=== PATIENT | male | born 1970 | race Caucasian/White ===

== ENCOUNTER 2016-09-02 20:35 | Emergency (ER) | payer SELFPAY ==
[~2016-09-02] VITALS: Ht 185.4 cm; Wt 99.0 kg
[2016-09-02] MEDS ORDERED: BENZ1TAB PO (20:45)
[2016-09-02] MEDS ORDERED: BUSP10TA PO (20:45)
[2016-09-02] MEDS ORDERED: IBUP800T23 PO (20:45)
[2016-09-02] MEDS ORDERED: BACL10TA PO (20:45)
[2016-09-02] MEDS ORDERED: HYDR-3801 PO (20:45)
[2016-09-02] MEDS ORDERED: NALT50TA3 PO (20:45)
[2016-09-02] MEDS ORDERED: QUET-73 PO (20:45)
[2016-09-02] MEDS ORDERED: CLON0.1T PO (20:45)
[2016-09-02 20:46] VITALS: BP 173/108; PULSE 83; RESP 20; TEMP 98.3; O2SAT 95
[2016-09-02] MEDS ORDERED: SODIUM CHLOR 0.9% 1000 ML INJ 1,000 ML IV ONE (21:00)
--- NOTE | 2016-09-02 21:06 | PD ---
HPI Chief Complaint: General Weakness Time Seen by Provider: 20:46 Travel History International Travel<30 days: No Contact w/Intl Traveler<30days: No Traveled to known affect area: No History of Present Illness HPI The patient is a 45-year-old male who presents emergency department via EMS for multiple complaints. The patient states he recently moved to area from [place] 2 months ago. The patient has a history of bipolar affective disorder and takes Seroquel and clonidine as mood stabilizers. The patient states his walking to the bus earlier today when he felt like he was shaking. The patient feels like he is having racing thoughts, a few shaking, and feels like he is "walking like a robot ". He denies any actual myalgias or arthralgias. He denies any chest pain or shortness of breath. The patient states he is having difficulty expressing his exact symptoms. He denies any suicidal or homicidal ideation. He denies any fever. PFSH Past Medical History Bipolar Disorder: Yes Anxiety: Yes Diminished Hearing: No Immunizations Current: Yes Tetanus Vaccination: Unknown Influenza Vaccination: No Past Surgical History Surgical History: No Previous Surgery Social History Alcohol Use: No Tobacco Use: Yes Substance Use: No Allergies-Medications (Allergen,Severity, Reaction): Coded Allergies: No Known Allergies (Unverified , 09/02/16) Reported Meds & Prescriptions Reported Meds & Active Scripts Active Reported Quetiapine ER (Quetiapine Fumarate) 400 Mg Tab 400 Mg PO DAILY Clonidine (Clonidine HCl) 0.1 Mg Tab 0.1 Mg PO TID Baclofen 10 Mg Tab 10 Mg PO Q8HR PRN Buspirone (Buspirone HCl) 10 Mg Tab 10 Mg PO TID Naltrexone (Naltrexone HCl) 50 Mg Tab 50 Mg PO DAILY Benztropine (Benztropine Mesylate) 1 Mg Tab 1 Mg PO BID Hydralazine (Hydralazine HCl) 100 Mg Tab 100 Mg PO TID Take with meals Ibuprofen 800 Mg Tab 800 Mg PO TID Review of Systems Except as stated in HPI: all other systems reviewed are Neg General / Constitutional: Positive: Other (shaking), No: Fever HENT: No: Lightheadedness Cardiovascular: No: Chest Pain or Discomfort Respiratory: No: Shortness of Breath Gastrointestinal: No: Nausea, Vomiting, Abdominal Pain Genitourinary: No: Dysuria, Incontinence Musculoskeletal: Positive: Pain (back pain) Psychiatric: Positive: Mood Disorder, No: Suicidal Ideations, Substance Abuse , Homicidal Ideation Physical Exam Narrative GENERAL: Awake, alert, 45-year-old male who appears his stated age and is in no acute respiratory distress. SKIN: Warm and dry. Sunburn noted over the face. HEAD: Atraumatic. Normocephalic. EYES: Pupils equal and round. Pupils are 4 mm bilateral and reactive.. ENT: No nasal bleeding or discharge. Mucous membranes pink and moist. NECK: Trachea midline. No JVD. CARDIOVASCULAR: Regular rate and rhythm. No murmur appreciated. Heart rate in the 80s. RESPIRATORY: No accessory muscle use. Clear to auscultation. Breath sounds equal bilaterally. GASTROINTESTINAL: Abdomen soft, non-tender, nondistended. No rebound tenderness. MUSCULOSKELETAL: No obvious deformities. No clubbing. No cyanosis. No edema. NEUROLOGICAL: Awake and alert. No obvious cranial nerve deficits. Motor grossly within normal limits. Normal speech. No rigidity noted. No drooling noted. Alert and oriented 4. PSYCHIATRIC: Odd affect. Data Data Last Documented VS Vital Signs Date Time Temp Pulse Resp B/P Pulse Ox O2 Delivery O2 Flow Rate FiO2 09/02/16 20:46 98.3 83 20 173/108 95 Orders Complete Blood Count With Diff (09/02/16 20:55) Comprehensive Metabolic Panel (09/02/16 20:55) Thyroid Stimulating Hormone (09/02/16 20:55) Urinalysis - C+S If Indicated (09/02/16 20:55) Psych Screen (09/02/16 20:55) Drug Screen, Random Urine (09/02/16 20:55) Alcohol (Ethanol) (09/02/16 20:55) Creatine Kinase (Cpk) (09/02/16 20:55) Sodium Chlor 0.9% 1000 Ml Inj (Ns 1000 M (09/02/16 21:00) CKMB (09/02/16 21:00) CKMB% (09/02/16 21:00) Labs Laboratory Tests Test 09/02/16 21:00 White Blood Count 10.5 TH/MM3 Red Blood Count 4.41 MIL/MM3 Hemoglobin 13.2 GM/DL Hematocrit 37.5 % Mean Corpuscular Volume 85.2 FL Mean Corpuscular Hemoglobin 29.9 PG Mean Corpuscular Hemoglobin 35.1 % Concent Red Cell Distribution Width 15.0 % Platelet Count 351 TH/MM3 Mean Platelet Volume 8.6 FL Neutrophils (%) (Auto) 58.8 % Lymphocytes (%) (Auto) 30.3 % Monocytes (%) (Auto) 8.9 % Eosinophils (%) (Auto) 1.2 % Basophils (%) (Auto) 0.8 % Neutrophils # (Auto) 6.1 TH/MM3 Lymphocytes # (Auto) 3.2 TH/MM3 Monocytes # (Auto) 0.9 TH/MM3 Eosinophils # (Auto) 0.1 TH/MM3 Basophils # (Auto) 0.1 TH/MM3 CBC Comment DIFF FINAL Differential Comment Sodium Level 141 MEQ/L Potassium Level 3.7 MEQ/L Chloride Level 107 MEQ/L Carbon Dioxide Level 25.0 MEQ/L Anion Gap 9 MEQ/L Blood Urea Nitrogen 13 MG/DL Creatinine 1.07 MG/DL Estimat Glomerular Filtration 74 ML/MIN Rate Random Glucose 97 MG/DL Calcium Level 8.4 MG/DL Total Bilirubin 0.3 MG/DL Aspartate Amino Transf 25 U/L (AST/SGOT) Alanine Aminotransferase 28 U/L (ALT/SGPT) Alkaline Phosphatase 71 U/L Total Creatine Kinase 450 U/L Total Protein 7.5 GM/DL Albumin 3.5 GM/DL Thyroid Stimulating Hormone 1.060 uIU/ML 3rd Gen Ethyl Alcohol Level LESS THAN 3 MG/DL MDM Medical Decision Making Medical Screen Exam Complete: Yes Emergency Medical Condition: Yes Medical Record Reviewed: Yes Interpretation(s) Laboratory Tests Test 09/02/16 21:00 White Blood Count 10.5 TH/MM3 Red Blood Count 4.41 MIL/MM3 Hemoglobin 13.2 GM/DL Hematocrit 37.5 % Mean Corpuscular Volume 85.2 FL Mean Corpuscular Hemoglobin 29.9 PG Mean Corpuscular Hemoglobin 35.1 % Concent Red Cell Distribution Width 15.0 % Platelet Count 351 TH/MM3 Mean Platelet Volume 8.6 FL Neutrophils (%) (Auto) 58.8 % Lymphocytes (%) (Auto) 30.3 % Monocytes (%) (Auto) 8.9 % Eosinophils (%) (Auto) 1.2 % Basophils (%) (Auto) 0.8 % Neutrophils # (Auto) 6.1 TH/MM3 Lymphocytes # (Auto) 3.2 TH/MM3 Monocytes # (Auto) 0.9 TH/MM3 Eosinophils # (Auto) 0.1 TH/MM3 Basophils # (Auto) 0.1 TH/MM3 CBC Comment DIFF FINAL Differential Comment Sodium Level 141 MEQ/L Potassium Level 3.7 MEQ/L Chloride Level 107 MEQ/L Carbon Dioxide Level 25.0 MEQ/L Anion Gap 9 MEQ/L Blood Urea Nitrogen 13 MG/DL Creatinine 1.07 MG/DL Estimat Glomerular Filtration 74 ML/MIN Rate Random Glucose 97 MG/DL Calcium Level 8.4 MG/DL Total Bilirubin 0.3 MG/DL Aspartate Amino Transf 25 U/L (AST/SGOT) Alanine Aminotransferase 28 U/L (ALT/SGPT) Alkaline Phosphatase 71 U/L Total Creatine Kinase 450 U/L Total Protein 7.5 GM/DL Albumin 3.5 GM/DL Thyroid Stimulating Hormone 1.060 uIU/ML 3rd Gen Ethyl Alcohol Level LESS THAN 3 MG/DL Differential Diagnosis Differential diagnosis includes neuroleptic malignant syndrome, bipolar affective disorder, rhabdomyolysis, medication side effect, serotonin syndrome, acute renal failure. Narrative Course IV was established, labs are drawn and sent, and the patient was placed on cardiac telemetry monitoring and continuous pulse oximetry monitoring. CPK was sent to lab. Patient does complain of walking like a robot, with muscle rigidity and tremors, he had no obvious muscle rigidity on examination, but does appear to have a slight tremor. Neuroleptic morning syndrome is in the differential as the patient does have a history of taking Seroquel. The patient is afebrile, there is no obvious rigidity on exam, and CKs only 450. I doubt neuroleptic malignant syndrome. Patient was reevaluated several times, I viewed and from a distance, there is no obvious tremor at that time. Patient's blood pressure was reevaluated, was slightly elevated, therefore, was administered his normal dose of clonidine. Psychiatric evaluation is ordered, disposition as per psych. Diagnosis Primary Impression: Bipolar affective disorder Qualified Code: F31.9 - Bipolar affective disorder, remission status unspecified Additional Impression: Hypertension Qualified Code: I10 - Essential hypertension Condition: Stable Josue Cintron MD Sep 02, 2016 21:06
[2016-09-02 21:21] LABS: AUTOMATED NEUTROPHIL # 6.1 TH/MM3 (1.8-7.7); BASOPHIL # 0.1 TH/MM3 (0-0.2); BASOPHIL % 0.8 % (0.0-2.0); EOSINOPHIL # 0.1 TH/MM3 (0-0.4); EOSINOPHIL % 1.2 % (0.0-4.0); HEMATOCRIT 37.5 % (39.0-51.0); HEMO FLAGS DIFF FINAL; LYMPH % 30.3 % (9.0-44.0); LYMPHOCYTE # 3.2 TH/MM3 (1.0-4.8); MEAN CELL VOLUME 85.2 FL (80.0-100.0); MEAN CORPUSCULAR HEMOGLOBIN 29.9 PG (27.0-34.0); MEAN CORPUSCULAR HGB CONC 35.1 % (32.0-36.0); MONO % 8.9 % (0.0-8.0); NEUT % 58.8 % (16.0-70.0); PLATELET COUNT 351 TH/MM3 (150-450); RED BLOOD COUNT 4.41 MIL/MM3 (4.50-5.90); WHITE BLOOD COUNT 10.5 TH/MM3 (4.0-11.0)
[2016-09-02 21:47] LABS: ANION GAP 9 MEQ/L (5-15)
[2016-09-02 21:55] LABS: ALKALINE PHOSPHATASE 71 U/L (45-117); ALT (GPT) 28 U/L (12-78); AST (GOT) 25 U/L (15-37); BLOOD UREA NITROGEN 13 MG/DL (7-18); CHLORIDE 107 MEQ/L (98-107); CREATINE KINASE 450 U/L (39-308); GLOMERULAR FILTRATION RATE 74 ML/MIN (>89); SODIUM (NA) 141 MEQ/L (136-145); TOTAL BILIRUBIN ADULT 0.3 MG/DL (0.2-1.0)
[2016-09-02 21:57] LABS: POTASSIUM 3.7 MEQ/L (3.5-5.1)
[2016-09-02 22:11] VITALS: BP 170/106; PULSE 83; RESP 20; TEMP 97.6; O2SAT 98
[2016-09-02 22:12] LABS: CKMB 2.9 NG/ML (0.5-3.6)
[2016-09-02] MEDS ORDERED: cloNIDine HCL 0.1 MG TAB PO ONE (22:15)
[2016-09-02 22:27] LABS: BLOOD, URINE TRACE (NEG); COMMENT (UR) CULT NOT INDICATED; CULTURE IF INDICATED CULT NOT INDICATED; GLUCOSE,URINE NEG (NEG); KETONE, URINE NEG (NEG); MUCUS URINE FEW /lpf (OCC); NITRITE,URINE NEG (NEG); PH, URINE 6.5 (5.0-8.5); URINE COLOR YELLOW (YELLW/STRAW)
[2016-09-02 22:29] LABS: AMPHETAMINE, URINE NEG (NEG); BARBITURATES, URINE NEG (NEG); COCAINE, URINE NEG (NEG)
[2016-09-02 23:07] VITALS: BP 166/96; PULSE 90; RESP 20; TEMP 97.6; O2SAT 98
[2016-09-03 00:56] VITALS: BP 163/92; PULSE 97; RESP 20; TEMP 98; O2SAT 98
[2016-09-03 02:33] VITALS: BP 145/97; PULSE 89; RESP 20; TEMP 98.2; O2SAT 98
[2016-09-03 05:05] VITALS: BP 117/79; PULSE 90; RESP 20; TEMP 97.8; O2SAT 98
--- NOTE | 2016-09-03 10:23 | PD ---
History of Present Illness Chief Complaint: General Weakness Time Seen by Provider: 10:00 Travel History International Travel<30 Days: No Contact w/Intl Traveler<30days: No Known affected area: No Legal Status Legal Status: Voluntary History of Present Illness: History of Present Illness HPI The patient is a 45-year-old male with history of bipolar disorder , substance use disorder who presents emergency department via EMS on a voluntary status for multiple complaints. As per ed documentation" The patient has a history of bipolar affective disorder and takes Seroquel and clonidine as mood stabilizers. The patient states his walking to the bus earlier today when he felt like he was shaking. The patient feels like he is having racing thoughts, a few shaking, and feels like he is "walking like a robot ". Patient seen in main ED. Awake, alert and oriented. Engaging and cooperative. Speech is clear, logical and coherent. His thoughts are organized with no hallucinations, no delusions and no paranoia. Dressed casually in shorts and a tshirt. . Speech is clear, logical and goal directed. Not pressured Affect is blunted . States " I had some sort of nervous breakdown. I had a stressful event. I live in a [facility] and I dropped one of my medication on the bunk of my roommate and the staff were saying I did it on purpose". I think it is physiological. Denies any suicidal or homicidal ideation, intent or plan. He goes on to report that he is having trouble staying still and feels stiff. He does in fact appear stiff with positive cogwheeling in upper extremities. I verified his medication and he indicates that he he has been taking 30 mg po of Haldol at x 2 months. PFSH Past Medical History Bipolar Disorder: Yes Anxiety: Yes Diminished Hearing: No Immunizations Current: Yes Tetanus Vaccination: Unknown Influenza Vaccination: No Past Surgical History Surgical History: No Previous Surgery Psychiatric History Psychiatric History Hx Psychiatric Treatment: HX OF ANXIETY AND BIPOLAR D/O Currently not being followed by psychiatrist. History of Inpatient Treatment: Yes (multiple ) Guns or firearms in home: No Social History Born in [place]. Currently at the [facility] x 2 weeks. Reports has been clean x 1 and 1/2 year from oxycodone. Hx Alcohol Use: No Hx Tobacco Use: Yes Hx Substance Use: Yes Substance Use Type: Alcohol, Marijuana, Ecstasy, Prescription Medications, Benzos (Valium,Xanax), Cocaine, Synth Opiates-Pain Pills Hx of Substance Use Treatment: Yes Family Psychiatric History None reported Allergies-Medications (Allergen,Severity, Reaction): Coded Allergies: No Known Allergies (Unverified , 09/02/16) Reported Meds & Prescriptions Reported Meds & Active Scripts Active Reported Quetiapine ER (Quetiapine Fumarate) 400 Mg Tab 400 Mg PO DAILY Clonidine (Clonidine HCl) 0.1 Mg Tab 0.1 Mg PO TID Baclofen 10 Mg Tab 10 Mg PO Q8HR PRN Buspirone (Buspirone HCl) 10 Mg Tab 10 Mg PO TID Naltrexone (Naltrexone HCl) 50 Mg Tab 50 Mg PO DAILY Benztropine (Benztropine Mesylate) 1 Mg Tab 1 Mg PO BID Hydralazine (Hydralazine HCl) 100 Mg Tab 100 Mg PO TID Take with meals Ibuprofen 800 Mg Tab 800 Mg PO TID Review of Systems Constitutional: DENIES: Diaphoretic episodes, Fatigue, Fever, Weight gain, Weight loss, Chills, Dizziness, Change in appetite, Night Sweats Endocrine: DENIES: Heat/cold intolerance, Polydipsia, Polyuria, Polyphagia Eyes: DENIES: Blurred vision, Diplopia, Eye inflammation, Eye pain, Vision loss , Photosensitivity, Double Vision Ears, nose, mouth, throat: DENIES: Tinnitus, Hearing loss, Vertigo, Nasal discharge, Oral lesions, Throat pain, Hoarseness, Ear Pain, Running Nose, Epistaxis, Sinus Pain, Toothache, Odynophagia Respiratory: DENIES: Apneas, Cough, Snoring, Wheezing, Hemoptysis, Sputum production, Shortness of breath Cardiovascular: DENIES: Chest pain, Palpitations, Syncope, Dyspnea on Exertion , PND, Lower Extremity Edema, Orthopnea, Claudication Gastrointestinal: DENIES: Abdominal pain, Black stools, Bloody stools, Constipation, Diarrhea, Nausea, Vomiting, Difficulty Swallowing, Anorexia Genitourinary: DENIES: Sexual dysfunction, Urinary frequency, Urinary incontinence, Urgency, Hematuria, Dysuria, Nocturia, Penile Discharge, Testicular Pain, Testicular Swelling Musculoskeletal: COMPLAINS OF: Stiffness Integumentary: DENIES: Abnormal pigmentation, Nail changes, Pruritus, Rash Hematologic/lymphatic: DENIES: Bruising, Lymphadenopathy Immunologic/allergic: DENIES: Eczema, Urticaria Neurologic: COMPLAINS OF: Tremor Psychiatric: DENIES: Anxiety, Confusion, Mood changes, Depression, Hallucinations, Agitation, Suicidal Ideation, Homicidal Ideation, Delusions Exam Alert: Yes [place]: Person (ox4) Mood: Anxious Affect: Blunted Speech: Clear, Logical Eye Contact: Normal Memory Intact: Comment (no impairment) Hallucinations: Other (negative) Suicidal: Ideation (denies any) Homicidal: Ideation (denies any) Insight/Judgement Fair . Not impaired MDM Medical Decision Making Medical Record Reviewed: Yes Assessment/Plan 45 year old male under a voluntary status who comes in for psychiatric evaluation . At this time it is most likely he is exhibiting EPS related to Haldol use.I have instructed him to hold the Haldol due to EPS. He also has benztropine in his medication supply and I have instructed him to increase to 2 mg po BID x 24 hours. Cleared from psychiatry for discharge. Follow up w [facility]. Printed information provided. Orders Complete Blood Count With Diff (09/02/16 20:55) Comprehensive Metabolic Panel (09/02/16 20:55) Thyroid Stimulating Hormone (09/02/16 20:55) Urinalysis - C+S If Indicated (09/02/16 20:55) Psych Screen (09/02/16 20:55) Drug Screen, Random Urine (09/02/16 20:55) Alcohol (Ethanol) (09/02/16 20:55) Creatine Kinase (Cpk) (09/02/16 20:55) Sodium Chlor 0.9% 1000 Ml Inj (Ns 1000 M (09/02/16 21:00) CKMB (09/02/16 21:00) CKMB% (09/02/16 21:00) Clonidine (Catapres) (09/02/16 22:15) Results Vital Signs Date Time Temp Pulse Resp B/P Pulse Ox O2 Delivery O2 Flow Rate FiO2 09/03/16 05:05 97.8 90 20 117/79 98 Room Air 09/03/16 02:33 98.2 89 20 145/97 98 Room Air 09/03/16 00:56 98.0 97 20 163/92 98 Room Air 09/02/16 23:07 97.6 90 20 166/96 98 Room Air 09/02/16 22:11 97.6 83 20 170/106 98 Room Air 09/02/16 20:46 98.3 83 20 173/108 95 Laboratory Tests Test 09/02/16 09/02/16 21:00 21:50 White Blood Count 10.5 Red Blood Count 4.41 Hemoglobin 13.2 Hematocrit 37.5 Mean Corpuscular Volume 85.2 Mean Corpuscular Hemoglobin 29.9 Mean Corpuscular Hemoglobin 35.1 Concent Red Cell Distribution Width 15.0 Platelet Count 351 Mean Platelet Volume 8.6 Neutrophils (%) (Auto) 58.8 Lymphocytes (%) (Auto) 30.3 Monocytes (%) (Auto) 8.9 Eosinophils (%) (Auto) 1.2 Basophils (%) (Auto) 0.8 Neutrophils # (Auto) 6.1 Lymphocytes # (Auto) 3.2 Monocytes # (Auto) 0.9 Eosinophils # (Auto) 0.1 Basophils # (Auto) 0.1 CBC Comment DIFF FINAL Differential Comment Sodium Level 141 Potassium Level 3.7 Chloride Level 107 Carbon Dioxide Level 25.0 Anion Gap 9 Blood Urea Nitrogen 13 Creatinine 1.07 Estimat Glomerular Filtration 74 Rate Random Glucose 97 Calcium Level 8.4 Total Bilirubin 0.3 Aspartate Amino Transf 25 (AST/SGOT) Alanine Aminotransferase 28 (ALT/SGPT) Alkaline Phosphatase 71 Total Creatine Kinase 450 Creatine Kinase MB 2.9 Creatine Kinase MB % 0.6 Total Protein 7.5 Albumin 3.5 Thyroid Stimulating Hormone 1.060 3rd Gen Ethyl Alcohol Level LESS THAN 3 Urine Color YELLOW Urine Turbidity CLEAR Urine pH 6.5 Urine Specific [place] 1.020 Urine Protein NEG Urine Glucose (UA) NEG Urine Ketones NEG Urine Occult Blood TRACE Urine Nitrite NEG Urine Bilirubin NEG Urine Urobilinogen LESS THAN 2.0 Urine Leukocyte Esterase NEG Urine RBC 4 Urine WBC LESS THAN 1 Urine Mucus FEW Microscopic Urinalysis Comment CULT NOT INDICATED Urine Opiates Screen NEG Urine Barbiturates Screen NEG Urine Amphetamines Screen NEG Urine Benzodiazepines Screen NEG Urine Cocaine Screen NEG Urine Cannabinoids Screen NEG Diagnosis Primary Impression: Bipolar affective disorder Additional Impression: Hypertension Psychiatrically Cleared: Yes Disposition: DISCHARGE HOME Condition: Stable Problem Qualifiers Primary Impression: Bipolar affective disorder Qualified Code: F31.9 - Bipolar affective disorder, remission status unspecified Additional Impression: Hypertension Qualified Code: I10 - Essential hypertension Megan Linton Sep 03, 2016 10:23
[2016-09-03 11:05] VITALS: BP 132/89
== END 2016-09-03 11:06 | disposition home or self-care (01) ==
LOC: NEPC 20:35
DX: F31.9 Bipolar disorder, unspecified (principal); I10 Essential (primary) hypertension; Z72.0 Tobacco use
CPT/HCPCS: 80053; 80307; 80320; 81001; 82550; 82552; 84443; 85025; 96360; 99283; J7030